=== PATIENT | female | born 1970 | race Caucasian/White ===

== ENCOUNTER 2017-12-05 14:17 | Emergency (ER) | payer BC ==
--- NOTE | 2017-12-05 14:38 | EDM.PDOC ---
ED HPI GENERAL MEDICAL PROBLEM - General Chief Complaint: Respiratory Problem Stated Complaint: SOB/FEVER Time Seen by Provider: 12/05/17 14:17 Source of Information: Reports: Patient History Limitations: Reports: No Limitations - History of Present Illness INITIAL COMMENTS - FREE TEXT/NARRATIVE: History of present illness: []Patient's been having cold symptoms for one week with cough shortness of breath and low-grade fevers less than 100. Patient denies any sore throat, ear pain, vomiting diarrhea or abdominal pain. Her shortness of breath is worse with exertion and she denies any chest pain at this time. Review of systems: As per history of present illness and below otherwise all systems reviewed and negative. Past medical history: As per history of present illness and as reviewed below otherwise noncontributory. Surgical history: As per history of present illness and as reviewed below otherwise noncontributory. Social history: No reported history of drug or alcohol abuse. Family history: As per history of present illness and as reviewed below otherwise noncontributory. Physical exam: General: Well developed, well nourished in NAD HEENT: Atraumatic, normocephalic, pupils reactive, negative for conjunctival pallor or scleral icterus, mucous membranes moist, throat clear, neck supple, nontender, trachea midline. Lungs: Clear to auscultation, breath sounds equal bilaterally, chest nontender. Faint expiratory wheezes no chest wall retractions or respiratory distress Heart: S1S2, regular, negative for clicks, rubs, or JVD. Abdomen: Soft, nondistended, nontender. Negative for masses or hepatosplenomegaly. Negative for costovertebral tenderness. Pelvis: Stable nontender. Genitourinary: Deferred. Rectal: Deferred. Extremities: Atraumatic, negative for cords or calf pain. Neurovascular unremarkable. Neuro: Awake, alert, oriented. Cranial nerves II through XII unremarkable. Cerebellum unremarkable. Motor and sensory unremarkable throughout. Exam nonfocal. Diagnostics: [] Therapeutics: [] Impression: []URI Plan: []Albuterol inhaler continue Motrin and Tylenol for fevers follow-up with her primary care. Definitive disposition and diagnosis as appropriate pending reevaluation and review of above. - Related Data Allergies Allergy/AdvReac Type Severity Reaction Status Date / Time No Known Allergies Allergy Verified 12/05/17 14:27 Home Meds: Home Meds Albuterol Sulfate [Ventolin Hfa] 8 gm IH Q4HR PRN #1 [email or web address] 12/05/17 [Rx] diphenhydrAMINE [Benadryl] 75 mg PO BEDTIME 12/05/17 [History] Past Medical History HEENT History: Reports: None Cardiovascular History: Reports: Hypertension Other Cardiovascular History: states she has been told she has a "slight heart murmur" Respiratory History: Reports: Pneumonia, Recurrent Gastrointestinal History: Reports: GERD, Helicobacter Pylori Other Gastrointestinal History: hx gastric ulcer and h pylori 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: Musculoskeletal History: Reports: Arthritis, Back Pain, Chronic, Fibromyalgia Other Musculoskeletal History: states hx of fx back, T10 two and a half years ago Neurological History: Reports: Headaches, Chronic Psychiatric History: Reports: Anxiety, Depression Endocrine/Metabolic History: Reports: None Hematologic History: Reports: None Immunologic History: Reports: None Oncologic (Cancer) History: Reports: None Dermatologic History: Reports: None - Infectious Disease History Infectious Disease History: Reports: Chicken Pox Other Infectious Disease History: childhood - Past Surgical History GI Surgical History: Reports: Cholecystectomy, Other (See Below) Female Surgical History: Reports: Breast Reduction, Section, Hysterectomy, Tubal Ligation Social & Family History - Family History Family Medical History: Noncontributory - Tobacco Use Smoking Status *Q: Former Smoker Years of Tobacco use: 23 Packs/Tins Daily: 1 Used Tobacco, but Quit: Yes Month Tobacco Last Used: 2014 Second Hand Smoke Exposure: Yes - Caffeine Use Caffeine Use: Reports: Coffee - Alcohol Use Days Per Week of Alcohol Use: 0 - Recreational Drug Use Recreational Drug Use: Yes Drug Use in Last 12 Months: No ED ROS GENERAL - Review of Systems Review Of Systems: See Below (See history of present illness) ED EXAM, GENERAL - Physical Exam Exam: See Below (See history of present illness) Course - Vital Signs Last Recorded V/S: Last Vital Signs Temp 97.1 F 12/05/17 14:25 Pulse 90 12/05/17 14:25 Resp 20 12/05/17 14:25 BP 128/95 H 12/05/17 14:25 Pulse Ox 99 12/05/17 14:25 Departure - Departure Time of Disposition: 14:39 Disposition: Home, Self-Care 01 Condition: Good Clinical Impression: Viral URI - Discharge Information Prescriptions: Albuterol Sulfate [Ventolin Hfa] 8 gm IH Q4HR PRN #1 [email or web address] PRN Reason: Shortness Of Breath Referrals: PCP,None [Primary Care Provider] - Gilmar Barriga MD [Resident] - Forms: ED Department Discharge
[2017-12-05 14:52] VITALS: BP 117/72
== END 2017-12-05 14:51 | disposition home or self-care (01) ==
LOC: MW.ED 14:17
DX: J06.9 Acute upper respiratory infection, unspecified (principal); I10 Essential (primary) hypertension; Z87.891 Personal history of nicotine dependence
CPT/HCPCS: 99282; 99283

== ENCOUNTER 2021-05-03 09:32 | Emergency (ER) | payer SELFPAY ==
--- NOTE | 2021-05-03 09:53 | EDM.PDOC ---
ED HPI GENERAL MEDICAL PROBLEM - General Chief Complaint: Chest Pain Stated Complaint: CP,SOB,PAIN IN L SHOULDER Time Seen by Provider: 05/03/21 09:34 Source of Information: Reports: Patient History Limitations: Reports: No Limitations - History of Present Illness INITIAL COMMENTS - FREE TEXT/NARRATIVE: Patient is a 50-year-old female who presents today for chest pain. Pain states the pain started in her left shoulder the past few days now radiate down to her chest. Patient is feels like a achy feeling. States the pain is made worse with some movement of the shoulder and deep breath at the makes the pain better patient denies any shortness of breath nausea vomiting fever chills or other complaints. States that she does have history of high blood pressure and has seen a family assistant in the past until she has some type of elective trip to the defect in her heart she is not sure the name of. Chest Pain Score (Numeric/FACES): 7 - Related Data Allergies Allergy/AdvReac Type Severity Reaction Status Date / Time No Known Allergies Allergy Verified 05/03/21 09:42 Home Meds: Home Meds Albuterol Sulfate [Ventolin Hfa] 8 gm IH Q4HR PRN #1 [email or web address] 12/05/17 [Rx] diphenhydrAMINE [Benadryl] 75 mg PO BEDTIME 12/05/17 [History] Past Medical History HEENT History: Reports: None Cardiovascular History: Reports: Hypertension Other Cardiovascular History: states she has been told she has a "slight heart murmur" Respiratory History: Reports: Pneumonia, Recurrent Gastrointestinal History: Reports: GERD, Helicobacter Pylori Other Gastrointestinal History: hx gastric ulcer and h pylori 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: Musculoskeletal History: Reports: Arthritis, Back Pain, Chronic, Fibromyalgia Other Musculoskeletal History: states hx of fx back, T10 two and a half years ago Neurological History: Reports: Headaches, Chronic Psychiatric History: Reports: Anxiety, Depression Endocrine/Metabolic History: Reports: None Hematologic History: Reports: None Immunologic History: Reports: None Oncologic (Cancer) History: Reports: None Dermatologic History: Reports: None - Infectious Disease History Infectious Disease History: Reports: Chicken Pox Other Infectious Disease History: childhood - Past Surgical History Cardiovascular Surgical History: Reports: None GI Surgical History: Reports: Cholecystectomy, Other (See Below) Other GI Surgeries/Procedures: hx hemorrhoidectomy Female Surgical History: Reports: Breast Reduction, Section, Hysterectomy, Tubal Ligation Neurological Surgical History: Reports: None Musculoskeletal Surgical History: Reports: None Social & Family History - Family History Family Medical History: No Pertinent Family History - Caffeine Use Caffeine Use: Reports: Coffee - Recreational Drug Use Recreational Drug Use: No ED ROS GENERAL - Review of Systems Review Of Systems: See Below Constitutional: Reports: No Symptoms HEENT: Reports: No Symptoms Respiratory: Reports: No Symptoms Cardiovascular: Reports: Chest Pain Endocrine: Reports: No Symptoms GI/Abdominal: Reports: No Symptoms : Reports: No Symptoms Musculoskeletal: Reports: No Symptoms Skin: Reports: No Symptoms Neurological: Reports: No Symptoms Psychiatric: Reports: No Symptoms Hematologic/Lymphatic: Reports: No Symptoms Immunologic: Reports: No Symptoms ED EXAM, GENERAL - Physical Exam Exam: See Below Exam Limited By: No Limitations General Appearance: Alert, WD/WN, No Apparent Distress Respiratory/Chest: No Respiratory Distress, Lungs Clear, Normal Breath Sounds Cardiovascular: Normal Peripheral Pulses, Regular Rate, Rhythm GI/Abdominal: Normal Bowel Sounds, Soft, Non-Tender Neurological: Alert, Oriented, CN II-XII Intact, Normal Cognition #1 Interpretation EKG Date: 05/03/21 Time: 09:32 Rhythm: NSR Rate (Beats/Min): 92 ST-T: Normal Course - Vital Signs Last Recorded V/S: Last Vital Signs Temp 99.1 F 05/03/21 09:43 Pulse 86 05/03/21 11:35 Resp 16 05/03/21 11:35 BP 129/89 05/03/21 11:35 Pulse Ox 99 05/03/21 11:35 - Orders/Labs/Meds Orders: Active Orders 24 hr Category Date Time Status CREATINE KINASE,CK [CHEM] Stat Lab 05/03/21 12:39 Stop Req TROPONIN I [CHEM] Stat Lab 05/03/21 12:39 Stop Req Labs: Laboratory Tests 05/03/21 05/03/21 Range/Units 09:39 09:39 WBC 6.13 (4.0-11.0) K/uL RBC 4.73 (4.30-5.90) M/uL Hgb 13.5 (12.0-16.0) g/dL Hct 40.2 (36.0-46.0) % MCV 85.0 (80.0-98.0) fL MCH 28.5 (27.0-32.0) pg MCHC 33.6 (31.0-37.0) g/dL RDW Std Deviation 43.3 (28.0-62.0) fl RDW Coeff of Sultana 14 (11.0-15.0) % Plt Count 253 (150-400) K/uL MPV 10.50 (7.40-12.00) fL Neut % (Auto) 56.1 (48.0-80.0) % Lymph % (Auto) 32.1 (16.0-40.0) % Isabella % (Auto) 9.1 (0.0-15.0) % Eos % (Auto) 2.0 (0.0-7.0) % Baso % (Auto) 0.7 (0.0-1.5) % Neut # (Auto) 3.4 (1.4-5.7) K/uL Lymph # (Auto) 2.0 (0.6-2.4) K/uL Isabella # (Auto) 0.6 (0.0-0.8) K/uL Eos # (Auto) 0.1 (0.0-0.7) K/uL Baso # (Auto) 0.0 (0.0-0.1) K/uL Nucleated RBC % 0.0 /100WBC Nucleated RBCs # 0 K/uL Sodium 138 (136-145) mmol/L Potassium 3.6 (3.5-5.1) mmol/L Chloride 103 (98-107) mmol/L Carbon Dioxide 25.2 (21.0-32.0) mmol/L BUN 12 (7.0-18.0) mg/dL Creatinine 1.0 (0.6-1.0) mg/dL Est Cr Clr Drug Dosing 66.51 mL/min Estimated GFR (MDRD) 59.2 ml/min Glucose 98 (74-106) mg/dL Calcium 8.5 (8.5-10.1) mg/dL Phosphorus 3.5 (2.6-4.7) mg/dL Magnesium 1.7 L (1.8-2.4) mg/dL Total Bilirubin 0.4 (0.2-1.0) mg/dL AST 10 L (15-37) IU/L ALT 18 (14-63) IU/L Alkaline Phosphatase 66 (46-116) U/L Creatine Kinase 36 (26-308) U/L Troponin I < 0.050 (0.000-0.056) ng/mL Total Protein 7.2 (6.4-8.2) g/dL Albumin 3.5 (3.4-5.0) g/dL Globulin 3.7 (2.6-4.0) g/dL Albumin/Globulin Ratio 0.9 (0.9-1.6) Lipase 103 (73-393) U/L - Re-Assessments/Exams Free Text/Narrative Re-Assessment/Exam: 05/03/21 11:56 Patient initial troponin negative EKG reviewed. Patient was to stay for 2 sets and likely will be discharged home. Patient chose to leave AGAINST MEDICAL ADVI CE. The patient is clinically not intoxicated, free from distracting pain, appears to have intact insight, judgment and reason and in my medical opinion has the capacity to make decisions. The patient is also not under any duress to leave the hospital. In this scenario, it would be battery to subject a patient to treatment against his/her will. I have voiced my concerns for the patient's health given that a full evaluation and treatment had not occurred. I have discussed the need for continued evaluation to determine if their symptoms are caused by a condition that present risk of or morbidity. Risks including but not limited to , permanent disability, prolonged hospitalization, prolonged illness, were discussed. I tried offering alternative options in hopes that the patient might be amenable to partial evaluation and treatment which would be medically beneficial to the patient, though the patient declined my options and insisted on leaving. Because I have been unable to convince the patient to stay, I answered all of their questions about their condition and asked them to return to the ED as soon as possible to complete their evaluation, especially if their symptoms worsen or do not improve. I emphasized that leaving against medical advice does not preclude returning here for further evaluation. I asked the patient to return if they change their mind about the further evaluation and treatment. I strongly encouraged the patient to return to this Emergency Department or any Emergency Department at any time, particularly with worsening symptoms. Departure - Departure Time of Disposition: 11:57 Disposition: Against Medical Advice 07 Condition: Good Clinical Impression: Chest pain Instructions: Nonspecific Chest Pain, Adult Referrals: PCP,None [Primary Care Provider] - Forms: ED Department Discharge Sepsis Event Note (ED) - Evaluation Sepsis Screening Result: No Definite Risk - Focused Exam Vital Signs: Vital Signs Temp Pulse Resp BP Pulse Ox 05/03/21 11:35 86 16 129/89 99 05/03/21 10:36 88 16 132/78 99 05/03/21 09:43 99.1 F 102 H 18 130/91 H 100 - My Orders Last 24 Hours: My Active Orders 05/03/21 12:39 CREATINE KINASE,CK [CHEM] Stat TROPONIN I [CHEM] Stat - Assessment/Plan Last 24 Hours: My Active Orders 05/03/21 12:39 CREATINE KINASE,CK [CHEM] Stat TROPONIN I [CHEM] Stat Plan: Patient is a 50-year-old female who presents today for left-sided chest pain rating from her shoulders her chest. Patient has a heart score of 2 for age and risk factors. Will obtain troponins x-ray labs and reassess.
--- NOTE | 2021-05-03 10:16 | CR ---
INDICATION: Chest pain. COMPARISON: 07/31/2016. TECHNIQUE: Single portable AP view of the chest. FINDINGS: The lungs are adequately inflated. No focal consolidation, pneumothorax or effusion. Cardiomediastinal silhouette is unremarkable for an AP view. Ring-like metallic densities project over the bilateral lower thorax, consistent with external ornamentation of the nipples. There are no acute osseous findings. IMPRESSION: Negative AP view of the chest. Dictated by Conor Coto MD @ 05/03/2021 10:15:32 AM Dictated by: Conor Coto MD @ 05/03/2021 10:15:42 (Electronically Signed)
[2021-05-03 10:20] LABS: BLOOD UREA NITROGEN,BUN 12 mg/dL (7.0-18.0); CARBON DIOXIDE,CO2 25.2 mmol/L (21.0-32.0); CHLORIDE,CL 103 mmol/L (98-107); GLUCOSE RANDOM 98 mg/dL (74-106); LIPASE 103 U/L (73-393); POTASSIUM,K 3.6 mmol/L (3.5-5.1); SODIUM,NA 138 mmol/L (136-145)
[2021-05-03 11:36] VITALS: BP 129/89; PULSE 86
== END 2021-05-03 11:54 | disposition left against medical advice (07) ==
LOC: MW.ED 09:32
DX: R07.9 Chest pain, unspecified (principal)
CPT/HCPCS: 36415; 71045; 71045-26; 80053; 82550; 83690; 83735; 84100; 84484; 85025; 93005; 99285-25